=== PATIENT | female | born 1990 | race Two or more races ===

== ENCOUNTER 2025-02-28 22:09 | Emergency (ER) | payer MEDICAID, OTHER ==
[~2025-02-28] VITALS: Ht 170.2 cm; Wt 139.3 kg
[2025-02-28 22:09] VITALS: BP 156/105; PULSE 117; RESP 18; TEMP 98.6; O2SAT 100
[2025-02-28] MEDS ORDERED: VANCOMYCIN PER PHARMACY 0 MG IV SCH (22:30)
[2025-02-28] MEDS ORDERED: SODIUM CHLORIDE 0.9% 1,000 ML IV ONE (22:30)
[2025-02-28] MEDS ORDERED: VANCOMYCIN 1GM/200ML PM 250 ML IV SCH (22:45)
== END 2025-03-01 02:03 | disposition left against medical advice (07) ==
LOC: ER 22:09
DX: L03.115 Cellulitis of right lower limb (principal); M79.89 Other specified soft tissue disorders; Z53.21 Procedure and treatment not carried out due to patient leaving prior to being seen by health care provider